=== PATIENT | female | born 1955 | race Caucasian/White ===

== ENCOUNTER 2017-03-18 16:29 | Emergency (ER) | payer BC ==
[~2017-03-18] VITALS: Ht 162.6 cm; Wt 90.5 kg
[2017-03-18 16:50] VITALS: BP 129/86; TEMP 99.1
[2017-03-18] MEDS ORDERED: TYLENOL W/COD1 UDTAB PO (17:53)
[2017-03-18 18:30] LABS: BASO % 0.4 % (0.0-2.0); EOS % 0.8 % (0-4.0); GRAN # 3.7 (1.4-6.5); GRAN % 69.2 % (42.2-75.2); HEMATOCRIT 45.2 % (37.0-47.0); LYMPH # 1.1 (1.2-3.4); LYMPH % 20.1 % (20.0-51.0); MEAN CELL VOLUME 91 fl (80.0-100.0); MEAN CORPUSCULAR HEMOGLOBIN 30 pg (27.0-31.0); MEAN CORPUSCULAR HGB CONC 33 g/dl (33.0-37.0); MEAN PLATELET VOLUME 10.6 fl (7.4-10.4); MONO # 0.5 (0.1-0.6); MONO % 9.1 % (1.7-9.3); PLATELET COUNT 175 K/mm3 (130-400); RED BLOOD COUNT 4.98 M/mm3 (4.10-5.30); REDCELL DISTRIBUTION WIDTH-CV 13.2 % (11.5-14.5)
[2017-03-18 18:41] LABS: ALBUMIN 4.8 gm/dL (3.5-5.0); BILIRUBIN,TOTAL 0.5 mg/dL (0.0-1.0); CALCIUM 9.6 mg/dL (8.4-10.2); CREATININE, serum 0.9 mg/dL (0.52-1.25); POTASSIUM 4.2 mmol/L (3.4-5.0); TOTAL PROTEIN 8.3 gm/dL (6.4-8.2)
[2017-03-18 18:51] LABS: INFLUENZA A NEGATIVE; INFLUENZA B NEGATIVE
[2017-03-18] MEDS ORDERED: PROAIR HFA0.09 MG/AC IH (19:24)
[2017-03-18] MEDS ORDERED: PREDNISONE20 MG PO (19:24)
[2017-03-18 20:02] VITALS: PULSE 98
== END 2017-03-18 20:02 | disposition home or self-care (01) ==
LOC: COL.ER 16:29
PROVIDERS: Emergency Medicine; Nurse Practitioner
DX: J20.9 Acute bronchitis, unspecified (principal); Z90.49 Acquired absence of other specified parts of digestive tract; Z90.710 Acquired absence of both cervix and uterus
CPT/HCPCS: J7030